=== PATIENT | male | born 1930 | race Caucasian/White ===

== ENCOUNTER 2019-03-22 07:49 | Day surgery (SDC) | payer MEDICARE ==
[2019-03-20 11:54] LABS: BASOPHILS % (AUTO) 0.4 % (0-1); EOSINOPHILS # (AUTO) 0.1 X10'3 (0-0.9); EOSINOPHILS % (AUTO) 1.6 % (0-6); LYMPHOCYTES # (AUTO) 0.8 X10'3 (1.1-4.8); LYMPHOCYTES % (AUTO) 11.1 % (21-51); MEAN CORPUSCULAR HEMOGLOBIN 29.9 PG (27.0-31.0); MEAN CORPUSCULAR HGB CONC 33.4 g/dL (33.0-36.5); MEAN CORPUSCULAR VOLUME 89.6 FL (78-98); MEAN PLATELET VOLUME 8.4 FL (7.4-10.4); MONOCYTES # (AUTO) 0.8 X10'3 (0-0.9); MONOCYTES % (AUTO) 11.9 % (2-12); NEUTROPHILS # (AUTO) 5.3 X10'3 (1.8-7.7); PRE OP HEMATOCRIT 45.7 % (42.0-52.0); PRE OP HEMOGLOBIN 15.3 g/dL (14.0-17.9); PRE OP PLATELET COUNT 181 X10'3 (140-440); RED CELL DISTRIBUTION WIDTH 15.1 % (11.5-14.5)
[2019-03-20 11:57] LABS: CLARITY,URINE CLEAR (Clear); COLOR,URINE YELLOW (Yellow); GLUCOSE, URINE NEGATIVE (Neg); KETONES,URINE NEGATIVE (Neg); LEUKOCYTE ESTERASE ,URINE NEGATIVE (Neg); NITRITES, URINE NEGATIVE (Neg); OCCULT BLOOD,URINE NEGATIVE (Neg); PH,URINE 7.5 (4.8-8.0); PROTEIN,URINE NEGATIVE (Neg); UROBILINOGEN,URINE 0.2 E.U/dL (0.2-1.0)
[2019-03-20 11:58] LABS: UA COLLECTION TYPE CLN CATCH MIDSTREAM
[2019-03-20 12:02] LABS: PRE OP INR 1.1 INR; PRE OP PROTIME 11.2 SECONDS (9.0-12.0)
[2019-03-20 12:03] LABS: ALBUMIN 3.6 G/DL (3.4-5.0); ALBUMIN/GLOBULIN RATIO 0.9 (1.1-1.5); ALKALINE PHOSPHATASE 123 IU/L (46-116); BLOOD UREA NITROGEN 23 MG/DL (7-18); BUN/CREATININE RATIO 19.8 (5.4-32.0); CALCIUM 9.3 MG/DL (8.5-10.1); CHLORIDE 108 MMOL/L (99-107); CREATININE 1.16 MG/DL (0.60-1.10); PRE OP ALT 36 U/L (30-65); PRE OP ANION GAP 10 (8-16); PRE OP AST 28 U/L (10-37); PRE OP BILIRUB, TOTAL 0.6 MG/DL (0.0-1.0); PRE OP GLUCOSE 99 MG/DL (70-104); PRE OP POTASSIUM 4.4 MMOL/L (3.4-5.1); PRE OP SODIUM 141 MMOL/L (135-145); TOTAL CARBON DIOXIDE 23.5 MMOL/L (24-32); TOTAL PROTEIN 7.4 G/DL (6.4-8.2); eGFR 60 ML/MIN
[2019-03-22] VITALS (7 sets, daily range): BP systolic 143–159; BP diastolic 81–92
[~2019-03-22] VITALS: Ht 180.3 cm; Wt 89.6 kg
[~2019-03-22 07:49] MED LIST: APIX5TAB3 PO; ASCO-407 PO; ASCO500C15 PO; CALC1TAB PO; CHOL100044 PO; CYAN100019 PO; DONE5TAB3 PO; FLAX100031 PO; FURO20TA4 PO; GLUC1CAP8 PO; HYDR1SOL PO; IRBE150T27 PO; MAGN400C PO; MELA3TAB64 PO; MULT-1085 PO; OMEG-167 PO; POTA20TA19 PO; PSYL0.524 PO; SELE200T25 PO; TURM500C4 PO; UBID1CAP54 PO; VITA0.4T18 PO; VITE1000C PO; [UNRECOGNIZED DRUG - OTHER] PO; calcium PO; calm PO; cefazolin/dext.iso 2gm/50ml 50 ML IV ONE; famotidine 20mg tablet PO ONE; ringers solution, lacted 1,000 ML IV SCH
[2019-03-22] MEDS ORDERED: LIDOcaine 1% (10mg/ml) 2ml vial ONE (08:35)
[2019-03-22] MEDS ORDERED: ringers solution, lacted 1,000 ML IV SCH (13:39)
[2019-03-22] MEDS ORDERED: fentaNYL/PF 50MCG/1 ML 2ML syringe IV PRN ×2 (13:40)
[2019-03-22] MEDS ORDERED: morphine 4 MG/ML inj SYRINge IV PRN ×2 (13:40)
[2019-03-22] MEDS ORDERED: ondansetron/PF 4mg/2ml inj IV PRN (13:40)
[2019-03-22] MEDS ORDERED: hydrALAZINE 20mg/ml inj. IV PRN (13:40)
[2019-03-22] MEDS ORDERED: labetalol 20mg/4ml (5mg/ml) syringe IV PRN (13:40)
[2019-03-22] MEDS ORDERED: BUPIVAcaine/PF 2.5 mg/ml (0.25%) 30ml vial ONE (13:42)
[2019-03-22] MEDS ORDERED: ceFAZolin 1000mg inj ONE (13:42)
[2019-03-22] MEDS ORDERED: fentaNYL/PF 50MCG/1 ML 2ML syringe ONE (13:56)
[2019-03-22] MEDS ORDERED: neostigmine methylsulfate 1 MG/ML 10ml vial ONE (13:58)
[2019-03-22] MEDS ORDERED: glycopyrrolate 0.2mg/ml inj ONE (13:58)
[2019-03-22] MEDS ORDERED: etomidate 2mg/ml inj. ONE (14:01)
[2019-03-22] MEDS ORDERED: ondansetron/PF 4mg/2ml inj ONE (14:40)
[2019-03-22] MEDS ORDERED: dexamethasone sod phosphate 4mg/ml inj. ONE (14:40)
[2019-03-22] MEDS ORDERED: labetalol 20mg/4ml (5mg/ml) syringe IV ONE (14:56)
--- NOTE | 2019-03-22 15:36 | NUR ---
Received from OR via , accompanied by Anesthesiologist DR. MANSFIELD and report given by Anesthesiolgist. PATIENT ARRIVED VIA GURNEY, VSS CHARTED, ABD SOFT TO TOUCH,NO S&S OF HEMATOMA, LAP SITES X2, BAND AIDES CDI. [address] INFUSING IVF ORDERED. WILL CONTINUE TO MONITOR.
--- NOTE | 2019-03-22 17:36 | NUR ---
PATIENT UNABLE TO VOID, ORAL FLUIDS GIVEN, BLADDER SCANNED 186 CC NOTED. WILL CONTINUE TO MONITOR.
--- NOTE | 2019-03-22 18:10 | NUR ---
PATIENT VOIDED 200CC.
[2019-03-22] MEDS ORDERED: traMADol 50MG tablet PO ONE ×2 (18:25→18:45)
--- NOTE | 2019-03-22 18:36 | NUR ---
PATIENT DISCHARGE INSTRUCTIONS GIVEN, PATIENT & FAMILY VERBALIZED UNDERSTANDING. PIV DC'D CATH TIP INTACT, PATIENT TO PERSONAL VEHICLE WITH ALL PERSONAL BELONGINGS, ACCOMPANIED BY STAFF AND FAMILY.
== END 2019-03-22 18:36 | disposition home or self-care (01) ==
LOC: PAS 07:49
PROVIDERS: ATTEND Surgery
PROC: 0YUA4JZ Supplement Bilateral Inguinal Region with Synthetic Substitute, Percutaneous Endoscopic Approach (ICD-10-PCS; principal; 2019-03-22 14:22)
DX: K40.20 Bilateral inguinal hernia, without obstruction or gangrene, not specified as recurrent (principal); R10.30 Lower abdominal pain, unspecified; I10 Essential (primary) hypertension; G47.30 Sleep apnea, unspecified; I48.91 Unspecified atrial fibrillation; Z95.0 Presence of cardiac pacemaker
CPT/HCPCS: 36415; 49650; 71046; 80053; 81003; 82948; 85025; 85610; 85730; C1781; J0690; J1100; J2001; J2405; J2710; J3010; J3490; A4215; A4314; A4618; A6258; J7120